=== PATIENT | female | born 1950 | race Two or more races ===

== ENCOUNTER 2025-03-18 08:00 | Day surgery (SDC) | payer OTHER ==
[2025-03-11 11:54] LABS: BASO % 0.9 % (0.1-1.2); EOS # 0.41 (0.04-0.54); EOS % 5.1 % (0.7-7.0); LYMPH # 2.33 (1.18-3.74); LYMPH % 28.8 % (19.3-53.1); MEAN PLATELET VOLUME 11.80 fl (9.4-12.4); MONO # 0.62 (0.24-0.82); MONO % 7.7 % (4.7-12.5); NEUT # 4.62 (1.56-6.13); NEUT % 57.1 % (34.0-71.1); RED CELL DISTRIBUTION WIDTH 13.7 % (11.6-14.4)
[2025-03-11 12:28] LABS: ALT/SGPT 34.0 U/L (12-78); AST/SGOT 32.0 U/L (15-37); BILIRUBIN TOTAL 0.47 mg/dL (0.3-1.2); BUN CREA RATIO 28.0 (7.0-25.0); CREATININE SERUM 0.89 mg/dL (0.55-1.02); GFR 61.83; GLOBULINA 3.7 G/DL (2.4-3.5); GLUCOSE FASTING 97.0 mg/dL (65-100); OSMOLALITY SERUM 289.0 MOSM/KG (275-295)
[2025-03-11 12:29] LABS: INR 1.0
[2025-03-11 12:44] VITALS: BP 149/86
[~2025-03-18] VITALS: Ht 154.9 cm; Wt 63.5 kg
[~2025-03-18 08:00] MED LIST: ECOTRIN81 MG PO; SINGULAIR10 MG PO; ZESTRIL20 MG PO
[2025-03-18] MEDS ORDERED: GLUCAGON 1 MG VIAL ONE (09:14)
[2025-03-18] MEDS ORDERED: IOVERSOL 320 MG/ML - 50 ML VIAL IV ONE (09:14)
[2025-03-19] MEDS ORDERED: ATIVAN0.5 M1 PO (03:34)
== END 2025-03-18 12:55 | disposition home or self-care (01) ==
LOC: CIR.AMB 08:00
PROVIDERS: ATTEND Internal Medicine
DX: K80.50 Calculus of bile duct without cholangitis or cholecystitis without obstruction (principal); R93.2 Abnormal findings on diagnostic imaging of liver and biliary tract; K80.51 Calculus of bile duct without cholangitis or cholecystitis with obstruction
CPT/HCPCS: 43262; C1748

== ENCOUNTER 2025-03-19 03:12 | Inpatient (IN) | payer OTHER ==
[~2025-03-19] VITALS: Ht 154.9 cm; Wt 59.0 kg
--- NOTE | 2025-03-19 03:32 | NUR ---
SE RECIEB FEMINA ALERT AY ORIENTADA X3 CUAL REFIERE PRESENTA DOLOR ABDOMINAL Y VOMITOS DESDE NIKIA. VENOPUNCION #20 LT HAND PATENTE VON DE EDEMA Y ERITEMA BAJANDO IV FLUIDS POR REGULADOR. PTE TRANSFERIDA DE CDT DE TOA SONDRA.
[2025-03-19] MEDS ORDERED: ATIVAN0.5 M1 PO (03:34)
[2025-03-19] MEDS ORDERED: FAMOTIDINE/PF 20 MG/2 ML VIAL IV PUSH STA (03:39)
[2025-03-19] MEDS ORDERED: 0.9 % SODIUM CHLORIDE 1,000 ML IV ONE (03:45)
[2025-03-19] MEDS ORDERED: FAMOTIDINE/PF 20 MG/2 ML VIAL ONE (03:58)
--- NOTE | 2025-03-19 04:19 | NUR ---
PACIENTE EVALUDAA POR QUIEN ORDENA TRATAMIENTO MEDICO, SE LE ORIENTA A PACIENTE SOBRE EL MISMO Y REFIERE ENTNDER, SE LE COLECTAN MUETRAS BAJO MEDIDAS ASEPTICAS. PACIENTE PREVIAMENTE CANALIZADA EN HOLDENO KARUAN CON ANGIO #20 EL CUAL SE ENCUENTRA PATENTE, VON DE EDEMA Y ERITEMA. SE LE NOTIFICA A MALYORIE ESTUDIO DE SONOGRAMA PENDIENTE.
[2025-03-19 04:30] LABS: BASO % 0.1 % (0.1-1.2); EOS # 0.01 (0.04-0.54); EOS % 0.1 % (0.7-7.0); LYMPH # 0.69 (1.18-3.74); LYMPH % 4.7 % (19.3-53.1); MEAN PLATELET VOLUME 11.60 fl (9.4-12.4); MONO # 0.74 (0.24-0.82); MONO % 5.1 % (4.7-12.5); NEUT # 13.09 (1.56-6.13); NEUT % 89.5 % (34.0-71.1); RED CELL DISTRIBUTION WIDTH 14.2 % (11.6-14.4)
[2025-03-19 04:39] LABS: INR 1.06
[2025-03-19 04:45] LABS: ALT/SGPT 45.0 U/L (12-78); AST/SGOT 44.0 U/L (15-37); BILIRUBIN TOTAL 0.99 mg/dL (0.3-1.2); BILIRUBIN,CONJUGATED 0.29 mg/dL (0.0-0.2); BUN CREA RATIO 23.0 (7.0-25.0); CREATININE SERUM 0.95 mg/dL (0.55-1.02); GFR 57.35; GLOBULINA 4.0 G/DL (2.4-3.5); GLUCOSE FASTING 133.0 mg/dL (65-100); OSMOLALITY SERUM 288.0 MOSM/KG (275-295)
[2025-03-19 08:48] LABS: URINE APPEARANCE Clear; URINE BILIRRUBIN Negative (NEGATIVE); URINE BLOOD Negative; URINE COLOR Yellow; URINE GLUCOSE Negative (NEGATIVE); URINE KETONE Negative (NEGATIVE); URINE LEUKOCYTE Negative; URINE NITRATE Negative; URINE PROTEIN Negative (NEGATIVE); URINE UROBILINOGEN 1.0 E.U./dl
[2025-03-19 08:50] LABS: URINE BACTERIA 21.6 uL (0.0-1933); URINE EPITHELIAL CELLS 34.1 uL (0.0-38.8); URINE WBC 7.8 uL (0.0-23.2)
[2025-03-19 08:52] LABS: URINE CAST 0.00 uL (0.0-1.40); URINE RBC 1.6 uL (0.0-20.8)
[2025-03-19] MEDS ORDERED: ENALAPRILAT DIHYDRATE 1.25 MG/ML VIAL IV ONE (09:57)
[2025-03-19] MEDS ORDERED: ENALAPRILAT DIHYDRATE 1.25 MG/ML VIAL IV STA (09:58)
--- NOTE | 2025-03-19 10:12 | NUR ---
SE CANALIZA PTE EN BRAZO DERECHO Y SE ADMINISTRA TX TAMERA ORDEN MEDICA BAJO MEDIDAS ASEPTICAS. SE ORIENTA PTE Y A FAMILIAR QUIENES REFIEREN ENTENDER Y ACEPTAR
[2025-03-19] MEDS ORDERED: MORPHINE SULFATE 2 MG/ML SYRINGE IV STA (11:10)
[2025-03-19] MEDS ORDERED: RINGERS SOLUTION,LACTATED 1,000 ML IV STA (11:13)
[2025-03-19] MEDS ORDERED: ENALAPRILAT DIHYDRATE 1.25 MG/ML VIAL IV PRN (12:15)
[2025-03-19] MEDS ORDERED: MORPHINE SULFATE 4 MG/ML CARTRIDGE IV PRN (12:15)
[2025-03-19] MEDS ORDERED: 0.9 % SODIUM CHLORIDE 1,000 ML IV SCH (12:15)
[2025-03-19 13:27] VITALS: BP 130/80
[2025-03-19 19:33] VITALS: BP 125/77; O2SAT 96
[2025-03-19] MEDS ORDERED: CLONAZEPAM 0.5 MG TABLET PO SCH (21:00)
[2025-03-20 02:53] VITALS: BP 138/75; O2SAT 94
[2025-03-20] MEDS ORDERED: PANTOPRAZOLE SODIUM 40 MG/VIAL VIAL IV SCH (07:30)
[2025-03-20 07:55] LABS: ALT/SGPT 35.0 U/L (12-78); AST/SGOT 48.0 U/L (15-37); BILIRUBIN TOTAL 0.92 mg/dL (0.3-1.2); BUN CREA RATIO 30.0 (7.0-25.0); CREATININE SERUM 0.63 mg/dL (0.55-1.02); GFR 92.12; GLOBULINA 3.2 G/DL (2.4-3.5); GLUCOSE FASTING 69.0 mg/dL (65-100); OSMOLALITY SERUM 287.0 MOSM/KG (275-295)
[2025-03-20 08:38] LABS: BASO % 0.3 % (0.1-1.2); EOS # 0.02 (0.04-0.54); EOS % 0.2 % (0.7-7.0); LYMPH # 0.60 (1.18-3.74); LYMPH % 4.9 % (19.3-53.1); MEAN PLATELET VOLUME 12.20 fl (9.4-12.4); MONO # 0.45 (0.24-0.82); MONO % 3.7 % (4.7-12.5); NEUT # 10.90 (1.56-6.13); NEUT % 89.9 % (34.0-71.1); RED CELL DISTRIBUTION WIDTH 14.6 % (11.6-14.4)
[2025-03-20 09:11] VITALS: BP 134/83; O2SAT 94
== END 2025-03-20 14:43 | disposition home or self-care (01) | DRG 439 ==
LOC: ER 03:12 → SEC-K 12:08 → MEDJ 13:16
PROVIDERS: General Practice; ADMIT Internal Medicine; ATTEND Internal Medicine
PROC: BW40ZZZ Ultrasonography of Abdomen (ICD-10-PCS; principal; 2025-03-19)
DX: K85.90 Acute pancreatitis without necrosis or infection, unspecified (principal); K91.89 Other postprocedural complications and disorders of digestive system; I10 Essential (primary) hypertension